=== PATIENT | male | born 1955 | race Caucasian/White ===

== ENCOUNTER 2017-04-13 15:04 | Inpatient (IN) | payer OTHER ==
--- NOTE | ~2017-04-13 | OP ---
Record Of [place] [id number] [facility] [place]. [address] NAME: DELANO HAGAN : 51 STATUS : ADM IN PAT#: [id number] AGE: 62 ADM/REG DATE : 04/13/17 MR#: [id number] REPORT SERV DATE: 04/24/17 DICTATED BY: GREG BRADLEY DATE: 04/23/17 REPORT STATUS : Draft TRANSCRIBED BY: MODL DATE: 04/23/17 DATE OF PROCEDURE: 04/23/2017 PRINT COLOR OPERATOR: Jeffery Bradley. ANESTHESIOLOGIST: Parker Maldonado M.D. PREOPERATIVE DIAGNOSES: 1. ST-segment elevation myocardial infarction. 2. Coronary artery disease. 3. Hypertension. 4. Hyperlipidemia. 5. Prior tobacco abuse. POSTOPERATIVE DIAGNOSES: 1. ST-segment elevation myocardial infarction. 2. Coronary artery disease. 3. Hypertension. 4. Hyperlipidemia. 5. Prior tobacco abuse. OPERATION/PROCEDURE PERFORMED: 1. Median sternotomy. 2. Extracorporeal circulation. 3. Urgent coronary artery bypass grafting x1, reverse greater saphenous vein graft to posterior descending artery. 4. JUDY. 5. Endoscopic vein harvest of right thigh. COMPLICATIONS: None. TUBES AND DRAINS: 32 straight atrial and ventricular wires. POSTOPERATIVE CONDITION: Stable to CVICU. Crossclamp of 26 minutes. Total cardiopulmonary bypass time of 41 minutes. INTRAOPERATIVE FINDINGS: On induction, there were ST-segment elevations inferiorly which resolved with nitroglycerin. The patient's ST changes were all resolved post bypass. He had a thin aorta; good quality vein, 4-5 mm. His PDA was 1.75 mm. On transesophageal echo prebypass, mild MR, inferior wall was slightly hypokinetic. There was no AI or . Post bypass, there was mild MR. His inferior wall was improved. There was no change in the AI or . INDICATIONS FOR PROCEDURE: The patient is a 62-year-old gentleman with a history of coronary artery disease. He has had stents to his RCA on 6 different occasions. He presented to the Record Of [facility] [address] [facility] [address] [place]. [address] NAME: DELANO HAGAN : 51 STATUS : ADM IN PAT#: [id number] AGE: 62 ADM/REG DATE : 04/13/17 MR#: [id number] REPORT SERV DATE: 04/24/17 DICTATED BY: GREG BRADLEY DATE: 04/23/17 REPORT STATUS : Draft TRANSCRIBED BY: FOZIA DATE: 04/23/17 emergency department with chest pain and EKG changes consistent with ST-elevation PR. He was taken for cardiac catheterization and was found to have a complete reocclusion to his right and this was treated with balloon angioplasty, and we were asked to see him to evaluate him for coronary artery bypass grafting after multiple stents placed. He washout. Risks, benefits, and alternatives were discussed with the patient including, but not limited to, bleeding, infection, stroke, , heart attack, need for future operations, kidney failure, lung failure, and cardiac arrhythmias. His STS risk mortality was 0.7% and morbidity mortality of 8.4% were discussed with him. All questions were answered. DETAILS OF PROCEDURE: The patient was brought to the operating room and placed supine on the operating room table. After satisfactory induction of general endotracheal anesthesia, he was prepped and draped in the usual sterile fashion. Working simultaneously, a median sternotomy was performed while skin and subcutaneous tissues were divided, and his endoscopic vein harvest was performed from his right thigh. The skin and subcutaneous tissues were divided, clavipectoral fascia was divided, and the sternum was divided in the midline. A sternal retractor was placed, pericardium was opened in the midline and along the diaphragm. Pericardial well was created. Aortic cannulation was achieved through dual pursestring at the base of the innominate artery. Antegrade root vent cardioplegia tack was placed and a dual-stage venous cannula was placed through the pursestring on the right atrial appendage. Systemic heparinization was achieved prior to opening the pericardium. The vein was brought up and was inspected and prepared for bypass. The cardiopulmonary bypass was initiated after documentation of an adequate ACT. The targets were inspected and felt to be appropriate. I did not think that his circumflex system would support a graft. This LAD system did not need a graft, really only felt that based on his cath that his PDA needed a graft. Crossclamp was brought up. The heart was arrested with cold antegrade cardioplegia, and after completion of arrest, the heart was positioned and the PDA was opened. A running continuous anastomosis was performed using 8-0 Surgipro. Vein was checked for hemostasis and felt to be hemostatic. Heart was filled. It was cut to length and spatulated. A proximal aortotomy was performed, enlarged with a 5.2 mm punch, and a running continuous anastomosis was performed using 6-0 Prolene. Vein graft marker was placed, vein graft was de-aired, and the crossclamp was removed. Atrial and ventricular pacing wires were placed. The patient returned to normal sinus rhythm, was able to be weaned from cardiopulmonary bypass without incident. Protamine was administered. He was decannulated. All cannulation sites were oversewn with 4-0 Prolene. The pericardium was loosely reapproximated over the aorta and the right ventricle using 2-0 silk. Hemostasis was obtained. A 32-Malagasy chest tube was placed under the sternum. The sternum was reapproximated with stainless steel sternal wires. Some of these were double wires. Clavipectoral fascia was reapproximated using running #1 StrataFix, subcutaneous tissue was closed using running #1 StrataFix, and the skin closed with 2-0 Quill. A dry sterile dressing was placed and he was transferred to the CVICU in critical stable condition. [facility] Greg Campbell Record Of Operation [address] [address] NAME: DELANO HAGAN : 51 STATUS : ADM IN PAT#: [id number] AGE: 62 ADM/REG DATE : 04/13/17 MR#: [id number] REPORT SERV DATE: 04/24/17 DICTATED BY: GREG BRADLEY DATE: 04/23/17 REPORT STATUS : Draft TRANSCRIBED BY: MODL DATE: 04/23/17 MD Iam / [id number] CC: MD Ignacio Liu Jr., M.D.
--- NOTE | ~2017-04-13 | HP ---
History And Physical [place] [address] [place]. [address] NAME: DELANO HAGAN : 51 STATUS : ADM IN PAT#: [id number] AGE: 62 ADM/REG DATE : 04/13/17 MR#: [id number] REPORT SERV DATE: 04/13/17 DICTATED BY: AUSTEN AN JR. DATE: 04/13/17 REPORT STATUS : Draft TRANSCRIBED BY: MODRikki DATE: 04/13/17 DATE OF ADMISSION: 04/13/2017 HISTORY OF PRESENT ILLNESS: Delano is a 62-year-old white male with ischemic heart disease, status post multiple prior interventions in RCA. He presents with accelerating angina with anticipated elective cath next week. His symptoms rapidly progressed prompting to ER presentation. His initial EKG did not reveal ST elevation. He developed recurrent chest pain that was more severe and repeat EKG was performed revealing benita ST elevation consistent with STEMI and the STEMI protocol was activated. PAST MEDICAL HISTORY: Inferior myocardial infarction in 2008; recurrent infarction in 2013, 2014, and 2015, all involving the right coronary artery. The patient has hypertension, mixed hyperlipidemia. He has osteoarthritis. He has COPD. He had a subdural evacuation last year without sequelae. ALLERGIES: CODEINE. CURRENT MEDICATIONS: Please see the medication sheet, which was reviewed. SOCIAL HISTORY: He is an ex-smoker. He does not abuse alcohol or recreational drugs. FAMILY HISTORY: Significant for mid and late life vascular events. REVIEW OF SYSTEMS: He denies fever, chills, bleeding diathesis, sudden weight gain or weight loss. Remainder as in HPI or negative. PHYSICAL EXAMINATION: VITAL SIGNS: Blood pressure 150/81, heart rate 72, respirations 16. GENERAL: Well developed, well nourished, in no acute distress. HEENT: Anicteric, no scleral injection, no oral lesions. NECK: No JVD, supple, no bruits. LUNGS: Clear to auscultation. No hyperexpansion. CARDIOVASCULAR: Regular rate and rhythm with no murmur, rub or gallop. ABDOMEN: Soft, nontender. Normoactive bowel sounds, no hepatosplenomegaly. EXTREMITIES: No clubbing, cyanosis or edema. SKIN: No visible rashes. NEURO/PSY: Normal affect, alert and oriented x 3. MEDICAL DECISION MAKIN. Acute ST-elevation NH involving the inferior leads consistent with known chronic disease in his RCA. The patient will be taken emergently to the cardiac catheterization laboratory for coronary angiography and percutaneous intervention. The risks were verbally accepted and verbally given secondary to emergent nature of the procedure. 2. Mixed hyperlipidemia. We will continue intensive statin therapy. History And Physical [address] [place]. [address] NAME: DELANO HAGAN : 51 STATUS : ADM IN PAT#: [id number] AGE: 62 ADM/REG DATE : 04/13/17 MR#: [id number] REPORT SERV DATE: 04/13/17 DICTATED BY: AUSTEN AN JR. DATE: 04/13/17 REPORT STATUS : Draft TRANSCRIBED BY: FOZIA DATE: 04/13/17 3. Hypertension. We will adjust medicines as needed during this hospital stay. BRENDA/FOZIA Austen An Jr., M.D. / [id number] CC: Lesa Pierre Jr., M.D. Robert Berglund, M.D.
--- NOTE | ~2017-04-13 | DS ---
Discharge Summary [facility] [address] [place]. [address] NAME: DELANO HAGAN : 51 STATUS : DIS IN PAT#: [id number] AGE: 62 ADM/REG DATE : 04/13/17 MR#: [id number] REPORT SERV DATE: 05/11/17 DICTATED BY: AUSTEN AN JR. DATE: 05/11/17 REPORT STATUS : Draft TRANSCRIBED BY: FOZIA DATE: 05/11/17 Data Collection from hospitalization DISCHARGE DIAGNOSES: 1. Inferior ST elevation myocardial infarction-acute. 2. Coronary artery disease status post coronary artery bypass grafting. 3. Hypertension. 4. Hyperlipidemia. 5. Osteoarthritis. 6. Chronic obstructive pulmonary disease. 7. Former smoker. 8. History of subdural hematoma. CONSULTATIONS: Angelito Woody NP. PROCEDURES: 1. Cardiac catheterization and percutaneous coronary intervention on 04/13/2017. 2. Median sternotomy, extracorporeal circulation. Urgent coronary artery bypass grafting x1 with reverse greater saphenous vein graft to the posterior descending artery. Transesophageal echocardiogram. Endoscopic vein harvest from the right thigh, 04/23/2017. 3. Carotid blood flow study, 04/16/2017. 4. Vein mapping of the bilateral lower extremities, 04/16/2017. 5. CT scan of the chest without contrast, 04/16/2017. MEDICATIONS: 1. Aspirin 162 mg daily. 2. Lipitor 40 mg at bedtime. 3. Symbicort two inhalations twice a day. 4. Cytotec 2.5 mg daily. 5. [place] 5/325 mg one to two tablets every 6 hours as needed. 6. Keppra 1500 mg twice a day. 7. Toprol-XL 50 mg daily. 8. Singulair 10 mg at bedtime. 9. Nitrostat 0.4 mg sublingually as needed. 10.Deltasone 5 mg twice a day. 11.He was instructed not to continue ibuprofen or Effient. CONDITION AT DISCHARGE: Stable. DISPOSITION: The patient was discharged home on a low-cholesterol, low-sodium cardiac diet with activities as instructed. FOLLOW-UP: He would follow up with Dr. Greg Vitale on 05/22/[address] Giorgio Blankenship on 05/16/2017. HOSPITAL COURSE: This is a 62-year-old man who has ischemic heart disease and is status post multiple prior interventions in the right coronary artery. He presented with accelerating Discharge Summary [place] [address] [place]. [address] NAME: DELANO HAGAN : 51 STATUS : DIS IN PAT#: [id number] AGE: 62 ADM/REG DATE : 04/13/17 MR#: [id number] REPORT SERV DATE: 05/11/17 DICTATED BY: AUSTEN AN JR. DATE: 05/11/17 REPORT STATUS : Draft TRANSCRIBED BY: FOZIA DATE: 05/11/17 angina with anticipated elective catheterization scheduled for the following week. His symptoms rapidly progressed and prompted an emergency room presentation. His initial EKG did not reveal ST elevation. He developed recurrent chest pain that was even more severe and repeat EKG was performed revealing benita ST elevation consistent with ST elevation myocardial infarction. STEMI protocol was activated. He was felt to have had an acute ST elevation myocardial infarction involving the inferior leads consistent with known chronic disease in the right coronary artery. It was felt that he would need to undergo emergent cardiac catheterization as well as percutaneous coronary intervention. The patient agreed to proceed and was admitted to the hospital at this time for further evaluation and treatment. Upon admission, intensive statin therapy was continued. His blood pressure medications would be adjusted as needed during his hospital stay. He was taken to the cardiac laborer mine where he underwent the above-mentioned procedure. He tolerated this well. There were no complications. Following this, he was seen by Angelito Woody. He was found to have complete reocclusion to the RCA, this was treated with balloon angioplasty, and Cardiothoracic Surgery had been asked to evaluate him for coronary artery bypass grafting after multiple stent failures. He was also found to have mild occlusions to his ostial circumflex and mid LAD. He had been on Effient with his last dose earlier that morning. He was currently recovering from a cardiac catheterization on Angiomax and Integrilin with no complaints of chest pain or shortness of breath. He felt that we would need to wait 10 days to allow for Effient wash out. The patient was agreeable to proceed. The following day, he had no chest pain or shortness of breath. His lungs were clear. He had some transient hypotension. On 04/16/2017, a carotid blood flow study was performed as well as vein mapping of the bilateral lower extremities, and a CT scan of the chest without contrast. He also underwent an echocardiogram. Effient washout continued. He had no new issues. He had no chest pain or shortness of breath. He was ambulatory. He was on a heparin drip. Heart rate and blood pressure were controlled. SANGITA inhibitor would be discontinued preoperatively. He was sleeping well. On 04/23/2017, he was taken to the operating room where he underwent the above-mentioned procedure. He tolerated this well and there were no complications. On postop day #1, he had no new complaints. He had no edema. The following day, he denied any pain, he was up sitting in a chair. He was doing well. He was transferred to the floor. His appetite was poor. Over the next couple of days, he did have some nausea. He had no major issues. Chest x-ray had improved. Discharge planning was performed. On 04/27/2017, he had no new issues. He still required supplemental O2. He had no complaints of shortness of breath or chest pain. His incisions were dry and intact. Discharge instructions were given. Due to his improved and stable condition, he was discharged home with the above-stated instructions. Information collected by: Shannan Amanda I submit the above information as my discharge summary. JONES/FOZIA Discharge Summary [address] [address] NAME: DELANO HAGAN : 51 STATUS : DIS IN PAT#: [id number] AGE: 62 ADM/REG DATE : 04/13/17 MR#: [id number] REPORT SERV DATE: 05/11/17 DICTATED BY: AUSTEN AN JR. DATE: 05/11/17 REPORT STATUS : Draft TRANSCRIBED BY: FOZIA DATE: 05/11/17 Austen An Jr., M.D. / [id number] CC: Lesa Pierre Jr., M.D. Nathan S. Woody, NP
--- NOTE | ~2017-04-13 | CN ---
Consultation Report [facility] [address] [place]. [address] NAME: DELANO HAGAN : 51 STATUS : ADM IN PAT#: [id number] AGE: 62 ADM/REG DATE : 04/13/17 MR#: [id number] REPORT SERV DATE: 04/14/17 DICTATED BY: RYLIE WOODY DATE: 04/13/17 REPORT STATUS : Draft TRANSCRIBED BY: MODL DATE: 04/13/17 CONSULT REPORT DATE OF CONSULTATION: 04/13/2017 REASON FOR CONSULTATION: Coronary artery disease. HISTORY OF PRESENT ILLNESS: This is a pleasant 62-year-old male with a history of coronary artery disease who has had stents to his RCA on six different occasions starting since 2008 with the last intervention in 04/2016. The patient has been followed by Dr. Blankenship as an outpatient, came into the emergency room this morning with chest pain and EKG changes consistent with ST-elevation HI. He was taken for cardiac catheterization, found to have complete reocclusion to the RCA, this was treated with balloon angioplasty and Cardiothoracic Surgery has been asked to evaluate him for coronary artery bypass grafting after multiple stent failures. The patient was also found to have mild occlusions to his ostial circumflex and mid LAD. The patient has been on Effient with his last dose this morning. Currently, he is recovering after cardiac catheterization on Angiomax and Integrilin with no complaints of chest pain or shortness of breath. His daughter is with him at the bedside. PAST MEDICAL HISTORY: Coronary artery disease, high blood pressure, hyperlipidemia, distant history of tobacco abuse, prior subdural hematoma. PAST SURGICAL HISTORY: Prior stents to his RCA as mentioned above, previous surgery for subdural hematoma. SOCIAL HISTORY: He is with children, retired. Smoked but quit 35 years ago. Drinks alcohol daily around two to three beers per day. Denies any history of use of illicit drugs. FAMILY HISTORY: Reviewed and noncontributory. ALLERGIES: HE IS ALLERGIC TO CODEINE. HOME MEDICATIONS: Acetaminophen 650 mg p.o. q.6h. as needed, aspirin 81 mg per day, Effient 10 mg per day, atorvastatin 40 mg p.o. daily, enalapril 2.5 mg p.o. daily, ibuprofen 800 mg p.o. b.i.d. as needed, levetiracetam 1500 mg p.o. q.12h, metoprolol extended release 50 mg p.o. daily, Singulair 10 mg p.o. daily, Symbicort inhaler twice a day, and nitroglycerin 0.4 mg tabs as directed. REVIEW OF SYSTEMS: A 10-point review of systems was obtained and is negative other than HPI. PHYSICAL EXAMINATION: Consultation Report [address] [place]. [address] NAME: DELANO HAGAN : 51 STATUS : ADM IN PAT#: [id number] AGE: 62 ADM/REG DATE : 04/13/17 MR#: [id number] REPORT SERV DATE: 04/14/17 DICTATED BY: RYLIE WOODY DATE: 04/13/17 REPORT STATUS : Draft TRANSCRIBED BY: FOZIA DATE: 04/13/17 VITAL SIGNS: From today, temperature 97.8, heart rate 66, blood pressure 135/91, respiratory rate 16, and O2 saturation 98%. GENERAL: Pleasant male, in no acute distress. PSYCH: Normal mood, talkative, and pleasant. NEUROLOGIC: Alert and oriented x3. Admittedly forgetful. Pupils are equal, round, and reactive to light and accommodation. He exhibits equal strength in bilateral upper extremities and bilateral lower extremities. HEENT: Head normocephalic and atraumatic. Nose midline with no abnormalities. Fair dentition overall with no obvious caries or abscesses. Ears with no abnormalities. NECK: Supple with no thyromegaly or lymphadenopathy. Carotids on auscultation with no obvious bruits. LUNGS: Clear to auscultation bilaterally with normal effort. CARDIAC: S1, S2, with no murmurs, rubs, or gallops. ABDOMEN: Soft, obese, nontender, with active bowel sounds. EXTREMITIES: Free of cyanosis, clubbing, or edema. LABORATORY DATA: White blood cell count 7.5, hemoglobin 15.8, hematocrit 45, platelets 174. Sodium 142, potassium 4.3, chloride 110, bicarbonate 24, BUN 12, creatinine 1.0, and glucose 97. ASSESSMENT AND PLAN: This is a pleasant 62-year-old male with a history of coronary artery disease status post stents to his RCA on six different occasions with the last stenting 11 months ago. He came in this morning with chest pain and ST-elevation HI, taken for cardiac catheterization and found to have total occlusion of his RCA which was treated with balloon angioplasty and we have been consulted for surgical evaluation. I believe the patient would benefit from coronary bypass to his right coronary artery. I discussed the findings with Dr. Vitale who reviewed images and also talked to the patient. We discussed the risks and benefits of surgery as well as STS risk scores and option for surgery. STS risk stratification for him and this particular surgery include an overall mortality of 0.7% and a morbidity mortality of 8.4%. I discussed these findings with the patient in relation to his need for surgery and expectation for recovery and the patient is agreeable to proceed. Unfortunately, we will need to wait 10 days to allow for Effient washout. The patient is agreeable to wait. In the meantime, we will order an echocardiogram, carotid ultrasound, bilateral lower extremity venous mapping, as well as a noncontrast CT scan of his chest. Cardiothoracic Surgery will be available over the weekend as needed. Otherwise, we will follow up again with him on Sunday. Thank you for the consultation. We look forward to helping you take care of Mr. Delano Hagan. FRANK/FOZIA Rylie Victoria Consultation Report [address] [place]. [address] NAME: DELANO HAGAN : 51 STATUS : ADM IN PAT#: [id number] AGE: 62 ADM/REG DATE : 04/13/17 MR#: [id number] REPORT SERV DATE: 04/14/17 DICTATED BY: RYLIE WOODY DATE: 04/13/17 REPORT STATUS : Draft TRANSCRIBED BY: MODL DATE: 04/13/17 LEIDA Woody / [id number] CC: Lesa Pierre Jr., MD
[2017-04-13 13:39] LABS: BASOPHILS 0.7 %; BASOPHILS ABSOLUTE 0.05 10/3/uL (0.0-0.16); EOSINOPHILS 1.2 %; EOSINOPHILS ABSOLUTE 0.09 10/3/uL (0.0-0.53); ER CBC TAT 0 Hrs 05 Mins; HEMOGLOBIN 15.8 g/dL (13.6-17.8); IMMATURE GRANULOCYTES 0.3 %; IMMATURE GRANULOCYTES ABSOLUTE 0.02 10/3/uL (0.0-0.11); LYMPHOCYTES 31.2 %; LYMPHOCYTES ABSOLUTE 2.35 10/3/uL (0.67-4.30); MANUAL DIFF NO %; MEAN CORPUS HGB CONC 35.1 g/dL (32.0-36.0); MEAN CORPUSCULAR HEMOGLOB 33.6 pg (26.0-34.0); MEAN CORPUSCULAR VOLUME 95.7 fL (80-100); MEAN PLATELET VOLUME 9.7 fL (9.2-13.0); MONOCYTES 13.8 %; MONOCYTES ABSOLUTE 1.04 10/3/uL (0.21-1.20); NEUTROPHILS 52.8 %; NEUTROPHILS ABSOLUTE 3.99 10/3/uL (2.02-8.40); PLATELET COUNT 174 10/3/uL (150-400); RBC DISTRIBUTION WIDTH 12.5 % (12.0-16.0); WHITE BLOOD CELLS 7.5 10/3/uL (4.5-10.5)
[2017-04-13 13:49] LABS: INTERNATIONAL NORMAL RATI 1.1 UNITS (-); PARTIAL THROMBO TIME 26.3 SEC (22.5-37.2)
[2017-04-13 13:56] LABS: BUN (BLOOD UREA NITROGEN) 12 MG/DL (6-23); CALCIUM, SERUM 9.1 MG/DL (8.5-10.4); CHEST PAIN PROFILE TAT 0 Hrs 22 Mins; CHLORIDE, SERUM 110 MMOL/L (96-112); CO2 (CARBON DIOXIDE) 24 MMOL/L (24-34); CREATININE 1.08 MG/DL (0.70-1.30); GFR AFRICAN AMERICAN 84 ML/MIN (>=60); GFR NON AFRICAN AMERICAN 72 ML/MIN (>=60); GLUCOSE, SERUM 97 MG/DL (60-99); POTASSIUM, SERUM 4.3 MMOL/L (3.5-5.3); SODIUM, SERUM 142 MMOL/L (135-148); TROPONIN I <0.02 NG/ML (<0.05)
[~2017-04-13 15:04] MED LIST: *UNABLE1; ACET500CAP PO; ASA5GR PO; ASAB PO; ATORVASTATIN PO; BONIVA150 MG PO; CENTRUM PO; DIOV160 PO; DIOVAN; EFFIENT10 PO; GENPRIL200 MG PO; IBU800 PO; KEPPRA500 PO; LIPITOR; LIPITOR40 PO; LOP25 PO; NITROQUICK0.4 MG SL; NITROSTAT0.4 MG SL; NORV5 PO; PLAVIX PO; RAN500 PO; RITALIN20 PO; SINGULAIR1 PO; SYMBICORT 160/41 INH INH; TOPXL50 PO; VASOTEC2 PO; ZANTAC150 MG PO; ZESTORETIC1 TA1 PO; [UNRECOGNIZED DRUG - OTHER]
[2017-04-13] MEDS ORDERED: SYMBICORT 160/41 INH PO (15:08)
[2017-04-13] MEDS ORDERED: EFFIENT10 PO (15:08)
[2017-04-13] MEDS ORDERED: LIPITOR40 PO (15:08)
[2017-04-13] MEDS ORDERED: KEPPRA500 PO (15:09)
[2017-04-13] MEDS ORDERED: VASOTEC2 PO (15:09)
[2017-04-13] MEDS ORDERED: SINGULAIR1 PO (15:09)
[2017-04-13] MEDS ORDERED: ASAB PO (15:10)
[2017-04-13] MEDS ORDERED: IBU800 PO (15:10)
[2017-04-13] MEDS ORDERED: NITROSTAT0.4 MG SL (15:10)
[2017-04-13] MEDS ORDERED: TOPXL50 PO (15:10)
[2017-04-13] MEDS ORDERED: *UNABLE3 (15:12)
[2017-04-13 22:40] LABS: BASOPHILS 0.5 %; BASOPHILS ABSOLUTE 0.04 10/3/uL (0.0-0.16); EOSINOPHILS 0.5 %; EOSINOPHILS ABSOLUTE 0.04 10/3/uL (0.0-0.53); HEMATOCRIT 41.2 % (40.0-51.0); HEMOGLOBIN 14.3 g/dL (13.6-17.8); IMMATURE GRANULOCYTES 0.1 %; IMMATURE GRANULOCYTES ABSOLUTE 0.01 10/3/uL (0.0-0.11); LYMPHOCYTES 22.1 %; LYMPHOCYTES ABSOLUTE 1.87 10/3/uL (0.67-4.30); MANUAL DIFF NO %; MEAN CORPUS HGB CONC 34.7 g/dL (32.0-36.0); MEAN CORPUSCULAR HEMOGLOB 33.4 pg (26.0-34.0); MEAN CORPUSCULAR VOLUME 96.3 fL (80-100); MEAN PLATELET VOLUME 10.1 fL (9.2-13.0); MONOCYTES 11.2 %; MONOCYTES ABSOLUTE 0.95 10/3/uL (0.21-1.20); NEUTROPHILS 65.6 %; NEUTROPHILS ABSOLUTE 5.57 10/3/uL (2.02-8.40); PLATELET COUNT 167 10/3/uL (150-400); RBC DISTRIBUTION WIDTH 12.7 % (12.0-16.0); RED CELL COUNT 4.28 10/6/uL (4.7-6.1); WHITE BLOOD CELLS 8.5 10/3/uL (4.5-10.5)
[2017-04-13 23:03] LABS: CK-MB 4.4 NG/ML; CPK 89 U/L (0-200)
[2017-04-13 23:05] LABS: TROPONIN I 0.95 NG/ML (<0.05)
[2017-04-14 01:05] LABS: BASOPHILS 0.6 %; BASOPHILS ABSOLUTE 0.05 10/3/uL (0.0-0.16); EOSINOPHILS 1.2 %; HEMATOCRIT 40.8 % (40.0-51.0); HEMOGLOBIN 14.2 g/dL (13.6-17.8); IMMATURE GRANULOCYTES 0.4 %; IMMATURE GRANULOCYTES ABSOLUTE 0.03 10/3/uL (0.0-0.11); LYMPHOCYTES 28.3 %; LYMPHOCYTES ABSOLUTE 2.32 10/3/uL (0.67-4.30); MANUAL DIFF NO %; MEAN CORPUS HGB CONC 34.8 g/dL (32.0-36.0); MEAN CORPUSCULAR HEMOGLOB 33.6 pg (26.0-34.0); MEAN CORPUSCULAR VOLUME 96.7 fL (80-100); MONOCYTES 15.8 %; NEUTROPHILS 53.7 %; NEUTROPHILS ABSOLUTE 4.41 10/3/uL (2.02-8.40); PLATELET COUNT 171 10/3/uL (150-400); RBC DISTRIBUTION WIDTH 12.6 % (12.0-16.0); RED CELL COUNT 4.22 10/6/uL (4.7-6.1); WHITE BLOOD CELLS 8.2 10/3/uL (4.5-10.5)
[2017-04-14 04:59] LABS: BASOPHILS 0.7 %; BASOPHILS ABSOLUTE 0.05 10/3/uL (0.0-0.16); EOSINOPHILS 1.3 %; HEMATOCRIT 39.2 % (40.0-51.0); HEMOGLOBIN 13.4 g/dL (13.6-17.8); IMMATURE GRANULOCYTES 0.1 %; IMMATURE GRANULOCYTES ABSOLUTE 0.01 10/3/uL (0.0-0.11); LYMPHOCYTES 29.5 %; LYMPHOCYTES ABSOLUTE 2.21 10/3/uL (0.67-4.30); MEAN CORPUS HGB CONC 34.2 g/dL (32.0-36.0); MEAN CORPUSCULAR HEMOGLOB 32.9 pg (26.0-34.0); MEAN CORPUSCULAR VOLUME 96.3 fL (80-100); MEAN PLATELET VOLUME 9.5 fL (9.2-13.0); NEUTROPHILS 52.4 %; NEUTROPHILS ABSOLUTE 3.91 10/3/uL (2.02-8.40); PLATELET COUNT 150 10/3/uL (150-400); RBC DISTRIBUTION WIDTH 12.8 % (12.0-16.0); RED CELL COUNT 4.07 10/6/uL (4.7-6.1); WHITE BLOOD CELLS 7.5 10/3/uL (4.5-10.5)
[2017-04-14 05:01] LABS: MANUAL DIFF NO %
[2017-04-14 05:17] LABS: BUN (BLOOD UREA NITROGEN) 13 MG/DL (6-23); CHLORIDE, SERUM 109 MMOL/L (96-112); CHOL/HDL RATIO(NOT ORDER) 2.6 (0-5); CHOLESTEROL 121 MG/DL (< 200); CO2 (CARBON DIOXIDE) 25 MMOL/L (24-34); CPK 90 U/L (0-200); CREATININE 0.96 MG/DL (0.70-1.30); GFR AFRICAN AMERICAN 96 ML/MIN (>=60); GFR NON AFRICAN AMERICAN 83 ML/MIN (>=60); GLUCOSE, SERUM 93 MG/DL (60-99); HDL CHOLESTEROL 47 MG/DL (> 39); LDL CHOLESTEROL 48 MG/DL (< 130); NON-HDL CHOLESTEROL 74 MG/DL (< 160); POTASSIUM, SERUM 4.2 MMOL/L (3.5-5.3); SODIUM, SERUM 139 MMOL/L (135-148); TRIGLYCERIDE 130 MG/DL (< 150)
[2017-04-14 05:19] LABS: CALCIUM, SERUM 7.9 MG/DL (8.5-10.4); CK-MB 4.7 NG/ML; TROPONIN I 0.82 NG/ML (<0.05)
[2017-04-14 14:19] LABS: CK-MB 3.6 NG/ML; CPK 77 U/L (0-200)
[2017-04-15 05:22] LABS: BASOPHILS 0.7 %; BASOPHILS ABSOLUTE 0.05 10/3/uL (0.0-0.16); EOSINOPHILS 2.1 %; EOSINOPHILS ABSOLUTE 0.15 10/3/uL (0.0-0.53); IMMATURE GRANULOCYTES 0.1 %; IMMATURE GRANULOCYTES ABSOLUTE 0.01 10/3/uL (0.0-0.11); LYMPHOCYTES 30.4 %; LYMPHOCYTES ABSOLUTE 2.16 10/3/uL (0.67-4.30); MEAN CORPUS HGB CONC 34.1 g/dL (32.0-36.0); MEAN CORPUSCULAR VOLUME 96.7 fL (80-100); MEAN PLATELET VOLUME 9.6 fL (9.2-13.0); MONOCYTES 12.4 %; MONOCYTES ABSOLUTE 0.88 10/3/uL (0.21-1.20); NEUTROPHILS 54.3 %; NEUTROPHILS ABSOLUTE 3.86 10/3/uL (2.02-8.40); PLATELET COUNT 147 10/3/uL (150-400); RBC DISTRIBUTION WIDTH 12.7 % (12.0-16.0); RED CELL COUNT 4.24 10/6/uL (4.7-6.1); WHITE BLOOD CELLS 7.1 10/3/uL (4.5-10.5)
[2017-04-15 05:23] LABS: MANUAL DIFF NO %
[2017-04-15 05:35] LABS: BUN (BLOOD UREA NITROGEN) 9 MG/DL (6-23); CHLORIDE, SERUM 109 MMOL/L (96-112); CO2 (CARBON DIOXIDE) 27 MMOL/L (24-34); CREATININE 0.81 MG/DL (0.70-1.30); GFR AFRICAN AMERICAN 109 ML/MIN (>=60); GFR NON AFRICAN AMERICAN 94 ML/MIN (>=60); GLUCOSE, SERUM 98 MG/DL (60-99); POTASSIUM, SERUM 4.1 MMOL/L (3.5-5.3); SODIUM, SERUM 141 MMOL/L (135-148)
[2017-04-17 05:28] LABS: BASOPHILS 0.5 %; BASOPHILS ABSOLUTE 0.04 10/3/uL (0.0-0.16); EOSINOPHILS 2.7 %; HEMATOCRIT 44.2 % (40.0-51.0); HEMOGLOBIN 15.6 g/dL (13.6-17.8); IMMATURE GRANULOCYTES 0.5 %; IMMATURE GRANULOCYTES ABSOLUTE 0.04 10/3/uL (0.0-0.11); LYMPHOCYTES 25.8 %; LYMPHOCYTES ABSOLUTE 1.91 10/3/uL (0.67-4.30); MANUAL DIFF NO %; MEAN CORPUS HGB CONC 35.3 g/dL (32.0-36.0); MEAN CORPUSCULAR HEMOGLOB 33.8 pg (26.0-34.0); MEAN CORPUSCULAR VOLUME 95.9 fL (80-100); MEAN PLATELET VOLUME 9.4 fL (9.2-13.0); MONOCYTES 15.1 %; MONOCYTES ABSOLUTE 1.12 10/3/uL (0.21-1.20); NEUTROPHILS 55.4 %; NEUTROPHILS ABSOLUTE 4.09 10/3/uL (2.02-8.40); PLATELET COUNT 170 10/3/uL (150-400); RBC DISTRIBUTION WIDTH 12.6 % (12.0-16.0); RED CELL COUNT 4.61 10/6/uL (4.7-6.1); WHITE BLOOD CELLS 7.4 10/3/uL (4.5-10.5)
[2017-04-17 06:19] LABS: BUN (BLOOD UREA NITROGEN) 9 MG/DL (6-23); CALCIUM, SERUM 8.5 MG/DL (8.5-10.4); CHLORIDE, SERUM 105 MMOL/L (96-112); CO2 (CARBON DIOXIDE) 22 MMOL/L (24-34); CREATININE 0.86 MG/DL (0.70-1.30); GFR AFRICAN AMERICAN 106 ML/MIN (>=60); GFR NON AFRICAN AMERICAN 92 ML/MIN (>=60); GLUCOSE, SERUM 104 MG/DL (60-99); POTASSIUM, SERUM 4.5 MMOL/L (3.5-5.3); SODIUM, SERUM 136 MMOL/L (135-148)
[2017-04-22 07:12] LABS: BASOPHILS 0.6 %; BASOPHILS ABSOLUTE 0.05 10/3/uL (0.0-0.16); EOSINOPHILS 1.5 %; EOSINOPHILS ABSOLUTE 0.12 10/3/uL (0.0-0.53); HEMATOCRIT 43.8 % (40.0-51.0); HEMOGLOBIN 15.2 g/dL (13.6-17.8); IMMATURE GRANULOCYTES 0.4 %; IMMATURE GRANULOCYTES ABSOLUTE 0.03 10/3/uL (0.0-0.11); LYMPHOCYTES 28.7 %; LYMPHOCYTES ABSOLUTE 2.31 10/3/uL (0.67-4.30); MEAN CORPUS HGB CONC 34.7 g/dL (32.0-36.0); MEAN CORPUSCULAR HEMOGLOB 33.5 pg (26.0-34.0); MEAN CORPUSCULAR VOLUME 96.5 fL (80-100); MEAN PLATELET VOLUME 9.9 fL (9.2-13.0); MONOCYTES 12.3 %; MONOCYTES ABSOLUTE 0.99 10/3/uL (0.21-1.20); NEUTROPHILS 56.5 %; NEUTROPHILS ABSOLUTE 4.56 10/3/uL (2.02-8.40); PLATELET COUNT 190 10/3/uL (150-400); RBC DISTRIBUTION WIDTH 12.8 % (12.0-16.0); RED CELL COUNT 4.54 10/6/uL (4.7-6.1); WHITE BLOOD CELLS 8.1 10/3/uL (4.5-10.5)
[2017-04-22 07:18] LABS: INTERNATIONAL NORMAL RATI 1.1 UNITS (-); PROTIME (NOT ORD) 14.1 SEC (12.0-14.5)
[2017-04-22 07:22] LABS: MANUAL DIFF NO %
[2017-04-22 07:26] LABS: CALCIUM, SERUM 8.9 MG/DL (8.5-10.4); CHLORIDE, SERUM 103 MMOL/L (96-112); CO2 (CARBON DIOXIDE) 25 MMOL/L (24-34); CREATININE 0.89 MG/DL (0.70-1.30); GFR AFRICAN AMERICAN 105 ML/MIN (>=60); GFR NON AFRICAN AMERICAN 90 ML/MIN (>=60); POTASSIUM, SERUM 3.8 MMOL/L (3.5-5.3); SODIUM, SERUM 136 MMOL/L (135-148)
[2017-04-22 07:27] LABS: BUN (BLOOD UREA NITROGEN) 13 MG/DL (6-23); GLUCOSE, SERUM 125 MG/DL (60-99)
[2017-04-22 09:52] LABS: WBC (NOT ORDERED) (RFLEX) 0 (0-5)
[2017-04-22 10:13] LABS: ASCORBIC ACID (UR NOT ORDER) NEG (NEG); BILIRUBIN, URINE NEGATIVE (NEG); KETONE, URINE NEGATIVE (NEG); LEUKOCYTE ESTERASE(NOT OR NEG (NEG)
[2017-04-23 06:45] LABS: BASOPHILS 0.9 %; BASOPHILS ABSOLUTE 0.07 10/3/uL (0.0-0.16); EOSINOPHILS 1.3 %; HEMATOCRIT 43.5 % (40.0-51.0); HEMOGLOBIN 15.2 g/dL (13.6-17.8); IMMATURE GRANULOCYTES 0.4 %; IMMATURE GRANULOCYTES ABSOLUTE 0.03 10/3/uL (0.0-0.11); LYMPHOCYTES 28.1 %; LYMPHOCYTES ABSOLUTE 2.21 10/3/uL (0.67-4.30); MEAN CORPUS HGB CONC 34.9 g/dL (32.0-36.0); MEAN CORPUSCULAR HEMOGLOB 33.7 pg (26.0-34.0); MEAN CORPUSCULAR VOLUME 96.5 fL (80-100); MONOCYTES 11.3 %; MONOCYTES ABSOLUTE 0.89 10/3/uL (0.21-1.20); NEUTROPHILS ABSOLUTE 4.56 10/3/uL (2.02-8.40); PLATELET COUNT 186 10/3/uL (150-400); RBC DISTRIBUTION WIDTH 12.8 % (12.0-16.0); RED CELL COUNT 4.51 10/6/uL (4.7-6.1); WHITE BLOOD CELLS 7.9 10/3/uL (4.5-10.5)
[2017-04-23 06:47] LABS: MANUAL DIFF NO %
[2017-04-23 06:50] LABS: INTERNATIONAL NORMAL RATI 1.1 UNITS (-); PROTIME (NOT ORD) 14.4 SEC (12.0-14.5)
[2017-04-23 06:51] LABS: PARTIAL THROMBO TIME 66.9 SEC (22.5-37.2)
[2017-04-23 07:03] LABS: A/G RATIO 0.8 (0.7-1.9); ALBUMIN 3.3 G/DL (3.5-5.0); ALKALINE PHOSPHATASE 66 U/L (45-117); BUN (BLOOD UREA NITROGEN) 13 MG/DL (6-23); CALCIUM, SERUM 8.9 MG/DL (8.5-10.4); CHLORIDE, SERUM 104 MMOL/L (96-112); CO2 (CARBON DIOXIDE) 22 MMOL/L (24-34); CREATININE 0.97 MG/DL (0.70-1.30); GFR AFRICAN AMERICAN 95 ML/MIN (>=60); GFR NON AFRICAN AMERICAN 82 ML/MIN (>=60); GLOBULIN 3.9 G/DL (2.5-4.1); GLUCOSE, SERUM 102 MG/DL (60-99); POTASSIUM, SERUM 4.1 MMOL/L (3.5-5.3); SGOT(AST) 19 U/L (5-40); SGPT(ALT) 45 U/L (5-65); SODIUM, SERUM 133 MMOL/L (135-148); TOTAL BILIRUBIN 0.8 MG/DL (0-1.2); TOTAL PROTEIN 7.2 G/DL (6.0-8.5)
[2017-04-23 19:02] LABS: BE (BASE EXCESS) -0.4 MEQ/L (0 +/- 2.5); CARBOXYHEMOGLOBIN 0.3 % (0-3); HCO3 (ACTUAL BICARBONATE) 24.4 MEQ/L (23-27); HEMOBLOGIN CONTENT 13.9 G/DL (14-18); INSTRUMENT SERIAL # 11843; METHEMOGLOBIN 0.7 % (0-3); MODE SIMV; O2 CONTENT 19.4 VOL% (18-24); OPERATOR ID 32193; PCO2 (CO2 TENSION) 41 MMHG (35-45); PO2 (O2 TENSION) 185 MMHG (79-93); SAMPLE Arterial; TIDAL VOLUME 700 ML
[2017-04-23 19:45] LABS: HEMATOCRIT 37.3 % (40.0-51.0)
[2017-04-23 19:50] LABS: INTERNATIONAL NORMAL RATI 1.4 UNITS (-); PARTIAL THROMBO TIME 33.8 SEC (22.5-37.2)
[2017-04-23 19:52] LABS: PROTIME (NOT ORD) 16.9 SEC (12.0-14.5)
[2017-04-23 19:55] LABS: BUN (BLOOD UREA NITROGEN) 14 MG/DL (6-23); CALCIUM, SERUM 8.9 MG/DL (8.5-10.4); CHLORIDE, SERUM 107 MMOL/L (96-112); CREATININE 0.97 MG/DL (0.70-1.30); GFR AFRICAN AMERICAN 95 ML/MIN (>=60); GFR NON AFRICAN AMERICAN 82 ML/MIN (>=60); GLUCOSE, SERUM 106 MG/DL (60-99); POTASSIUM, SERUM 4.6 MMOL/L (3.5-5.3)
[2017-04-23 19:56] LABS: CO2 (CARBON DIOXIDE) 27 MMOL/L (24-34); SODIUM, SERUM 140 MMOL/L (135-148)
[2017-04-24 00:21] LABS: HEMATOCRIT 37.2 % (40.0-51.0)
[2017-04-24 02:33] LABS: BE (BASE EXCESS) -3.6 MEQ/L (0 +/- 2.5); DEVICE NC; HCO3 (ACTUAL BICARBONATE) 22.2 MEQ/L (23-27); HEMOBLOGIN CONTENT 13.7 G/DL (14-18); INSTRUMENT SERIAL # 11843; METHEMOGLOBIN 0.6 % (0-3); O2 CONTENT 18.7 VOL% (18-24); OPERATOR ID 32193; PCO2 (CO2 TENSION) 43 MMHG (35-45); PO2 (O2 TENSION) 109 MMHG (79-93); SAMPLE Arterial; pH 7.33 (7.37-7.43)
[2017-04-24 05:12] LABS: BASOPHILS 0.1 %; BASOPHILS ABSOLUTE 0.01 10/3/uL (0.0-0.16); EOSINOPHILS 0 %; HEMATOCRIT 36.6 % (40.0-51.0); HEMOGLOBIN 12.9 g/dL (13.6-17.8); IMMATURE GRANULOCYTES 0.4 %; IMMATURE GRANULOCYTES ABSOLUTE 0.06 10/3/uL (0.0-0.11); LYMPHOCYTES 3.8 %; LYMPHOCYTES ABSOLUTE 0.55 10/3/uL (0.67-4.30); MEAN CORPUS HGB CONC 35.2 g/dL (32.0-36.0); MEAN CORPUSCULAR HEMOGLOB 33.9 pg (26.0-34.0); MEAN CORPUSCULAR VOLUME 96.1 fL (80-100); MEAN PLATELET VOLUME 10.2 fL (9.2-13.0); MONOCYTES 6.6 %; MONOCYTES ABSOLUTE 0.95 10/3/uL (0.21-1.20); NEUTROPHILS 89.1 %; NEUTROPHILS ABSOLUTE 12.83 10/3/uL (2.02-8.40); PLATELET COUNT 146 10/3/uL (150-400); RBC DISTRIBUTION WIDTH 12.4 % (12.0-16.0); RED CELL COUNT 3.81 10/6/uL (4.7-6.1)
[2017-04-24 05:13] LABS: MANUAL DIFF NO %; WHITE BLOOD CELLS 14.4 10/3/uL (4.5-10.5)
[2017-04-24 05:27] LABS: CALCIUM, SERUM 8.6 MG/DL (8.5-10.4); CHLORIDE, SERUM 110 MMOL/L (96-112); CREATININE 1.06 MG/DL (0.70-1.30); GFR AFRICAN AMERICAN 86 ML/MIN (>=60); GFR NON AFRICAN AMERICAN 74 ML/MIN (>=60); GLUCOSE, SERUM 101 MG/DL (60-99); POTASSIUM, SERUM 4.2 MMOL/L (3.5-5.3); SODIUM, SERUM 140 MMOL/L (135-148)
[2017-04-24 05:29] LABS: BUN (BLOOD UREA NITROGEN) 18 MG/DL (6-23); CO2 (CARBON DIOXIDE) 22 MMOL/L (24-34)
[2017-04-24 16:12] LABS: HEMOGLOBIN 12.1 g/dL (13.6-17.8)
[2017-04-24 16:22] LABS: ALBUMIN 3.6 G/DL (3.5-5.0); BUN (BLOOD UREA NITROGEN) 19 MG/DL (6-23); CALCIUM, SERUM 8.1 MG/DL (8.5-10.4); CHLORIDE, SERUM 110 MMOL/L (96-112); CO2 (CARBON DIOXIDE) 25 MMOL/L (24-34); CREATININE 0.89 MG/DL (0.70-1.30); GFR AFRICAN AMERICAN 105 ML/MIN (>=60); GFR NON AFRICAN AMERICAN 90 ML/MIN (>=60); GLUCOSE, SERUM 121 MG/DL (60-99); POTASSIUM, SERUM 4.4 MMOL/L (3.5-5.3); SGOT(AST) 87 U/L (5-40); SGPT(ALT) 32 U/L (5-65); SODIUM, SERUM 141 MMOL/L (135-148); TOTAL BILIRUBIN 0.7 MG/DL (0-1.2); TOTAL PROTEIN 6.3 G/DL (6.0-8.5)
[2017-04-24 16:23] LABS: A/G RATIO 1.3 (0.7-1.9); ALKALINE PHOSPHATASE 47 U/L (45-117); GLOBULIN 2.7 G/DL (2.5-4.1)
[2017-04-25 03:10] LABS: BASOPHILS 0 %; BASOPHILS ABSOLUTE 0.01 10/3/uL (0.0-0.16); EOSINOPHILS 0 %; HEMATOCRIT 36.5 % (40.0-51.0); HEMOGLOBIN 12.2 g/dL (13.6-17.8); IMMATURE GRANULOCYTES 0.4 %; IMMATURE GRANULOCYTES ABSOLUTE 0.09 10/3/uL (0.0-0.11); LYMPHOCYTES 6.9 %; LYMPHOCYTES ABSOLUTE 1.44 10/3/uL (0.67-4.30); MEAN CORPUSCULAR HEMOGLOB 33.2 pg (26.0-34.0); MEAN PLATELET VOLUME 10.1 fL (9.2-13.0); MONOCYTES ABSOLUTE 1.87 10/3/uL (0.21-1.20); NEUTROPHILS 83.7 %; NEUTROPHILS ABSOLUTE 17.38 10/3/uL (2.02-8.40); PLATELET COUNT 122 10/3/uL (150-400); RBC DISTRIBUTION WIDTH 12.9 % (12.0-16.0); RED CELL COUNT 3.68 10/6/uL (4.7-6.1)
[2017-04-25 03:12] LABS: MANUAL DIFF NO %; MEAN CORPUS HGB CONC 33.4 g/dL (32.0-36.0); MEAN CORPUSCULAR VOLUME 99.2 fL (80-100); WHITE BLOOD CELLS 20.8 10/3/uL (4.5-10.5)
[2017-04-25 03:22] LABS: BUN (BLOOD UREA NITROGEN) 18 MG/DL (6-23); CALCIUM, SERUM 8.4 MG/DL (8.5-10.4); CHLORIDE, SERUM 107 MMOL/L (96-112); CO2 (CARBON DIOXIDE) 26 MMOL/L (24-34); CREATININE 0.99 MG/DL (0.70-1.30); GFR AFRICAN AMERICAN 93 ML/MIN (>=60); GFR NON AFRICAN AMERICAN 80 ML/MIN (>=60); GLUCOSE, SERUM 145 MG/DL (60-99); POTASSIUM, SERUM 4.8 MMOL/L (3.5-5.3); SODIUM, SERUM 141 MMOL/L (135-148)
[2017-04-26 04:55] LABS: CALCIUM, SERUM 8.6 MG/DL (8.5-10.4); CHLORIDE, SERUM 104 MMOL/L (96-112); CO2 (CARBON DIOXIDE) 30 MMOL/L (24-34); CREATININE 0.84 MG/DL (0.70-1.30); GFR AFRICAN AMERICAN 107 ML/MIN (>=60); GFR NON AFRICAN AMERICAN 93 ML/MIN (>=60); GLUCOSE, SERUM 123 MG/DL (60-99); POTASSIUM, SERUM 4.7 MMOL/L (3.5-5.3); SODIUM, SERUM 140 MMOL/L (135-148)
[2017-04-26 05:01] LABS: BUN (BLOOD UREA NITROGEN) 23 MG/DL (6-23)
[2017-04-26 05:06] LABS: BASOPHILS 0.1 %; BASOPHILS ABSOLUTE 0.02 10/3/uL (0.0-0.16); EOSINOPHILS 0 %; HEMATOCRIT 37.9 % (40.0-51.0); HEMOGLOBIN 12.6 g/dL (13.6-17.8); IMMATURE GRANULOCYTES 0.6 %; LYMPHOCYTES ABSOLUTE 1.52 10/3/uL (0.67-4.30); MEAN CORPUS HGB CONC 33.2 g/dL (32.0-36.0); MEAN CORPUSCULAR HEMOGLOB 33.7 pg (26.0-34.0); MEAN CORPUSCULAR VOLUME 101.3 fL (80-100); MEAN PLATELET VOLUME 10.7 fL (9.2-13.0); MONOCYTES 16.2 %; MONOCYTES ABSOLUTE 2.74 10/3/uL (0.21-1.20); NEUTROPHILS 74.1 %; NEUTROPHILS ABSOLUTE 12.55 10/3/uL (2.02-8.40); PLATELET COUNT 139 10/3/uL (150-400); RBC DISTRIBUTION WIDTH 13.1 % (12.0-16.0); RED CELL COUNT 3.74 10/6/uL (4.7-6.1); WHITE BLOOD CELLS 16.9 10/3/uL (4.5-10.5)
[2017-04-26 05:07] LABS: MANUAL DIFF NO %
[2017-04-27 06:55] LABS: BASOPHILS 0.1 %; BASOPHILS ABSOLUTE 0.01 10/3/uL (0.0-0.16); EOSINOPHILS 0.5 %; EOSINOPHILS ABSOLUTE 0.08 10/3/uL (0.0-0.53); HEMOGLOBIN 14.1 g/dL (13.6-17.8); IMMATURE GRANULOCYTES 0.3 %; IMMATURE GRANULOCYTES ABSOLUTE 0.05 10/3/uL (0.0-0.11); LYMPHOCYTES 14.4 %; LYMPHOCYTES ABSOLUTE 2.14 10/3/uL (0.67-4.30); MEAN CORPUS HGB CONC 33.7 g/dL (32.0-36.0); MEAN CORPUSCULAR HEMOGLOB 33.6 pg (26.0-34.0); MEAN CORPUSCULAR VOLUME 99.5 fL (80-100); MEAN PLATELET VOLUME 10.4 fL (9.2-13.0); MONOCYTES 16.6 %; MONOCYTES ABSOLUTE 2.47 10/3/uL (0.21-1.20); NEUTROPHILS 68.1 %; NEUTROPHILS ABSOLUTE 10.09 10/3/uL (2.02-8.40); PLATELET COUNT 145 10/3/uL (150-400); RBC DISTRIBUTION WIDTH 12.8 % (12.0-16.0); WHITE BLOOD CELLS 14.8 10/3/uL (4.5-10.5)
[2017-04-27 07:00] LABS: HEMATOCRIT 41.8 % (40.0-51.0); MANUAL DIFF NO %
[2017-04-27 07:06] LABS: CALCIUM, SERUM 8.7 MG/DL (8.5-10.4); CHLORIDE, SERUM 103 MMOL/L (96-112); CO2 (CARBON DIOXIDE) 27 MMOL/L (24-34); CREATININE 0.78 MG/DL (0.70-1.30); GFR AFRICAN AMERICAN 111 ML/MIN (>=60); GFR NON AFRICAN AMERICAN 95 ML/MIN (>=60); GLUCOSE, SERUM 105 MG/DL (60-99); POTASSIUM, SERUM 4.6 MMOL/L (3.5-5.3); SODIUM, SERUM 136 MMOL/L (135-148)
[2017-04-27 07:09] LABS: BUN (BLOOD UREA NITROGEN) 16 MG/DL (6-23)
[2017-04-27] MEDS ORDERED: NORCO1 TA1 PO (10:01)
[2017-04-27] MEDS ORDERED: DELTADOSE PO (10:02)
[2017-05-19] MEDS ORDERED: XARELTO15 MG PO (11:57)
== END 2017-04-27 11:38 | disposition home or self-care (01) | DRG 232 ==
LOC: ER 15:04 → SSU2 15:16 → CCU 16:05 → 6NO 04-14 18:01 → CVICU 04-23 17:18 → 5NO 04-25 12:46
PROVIDERS: Emergency Medicine; Internal Medicine Cardiovascular Disease; Internal Medicine Interventional Cardiology; Thoracic Surgery (Cardiothoracic Vascular Surgery)
PROC: 02703ZZ Dilation of Coronary Artery, One Artery, Percutaneous Approach (ICD-10-PCS; principal; 2017-04-13)
PROC: 021009W Bypass Coronary Artery, One Artery from Aorta with Autologous Venous Tissue, Open Approach (ICD-10-PCS; 2017-04-13)
PROC: 4A023N7 Measurement of Cardiac Sampling and Pressure, Left Heart, Percutaneous Approach (ICD-10-PCS; 2017-04-13)
PROC: 06BP4ZZ Excision of Right Saphenous Vein, Percutaneous Endoscopic Approach (ICD-10-PCS; 2017-04-13)
PROC: B2111ZZ Fluoroscopy of Multiple Coronary Arteries using Low Osmolar Contrast (ICD-10-PCS; 2017-04-13)
PROC: B2151ZZ Fluoroscopy of Left Heart using Low Osmolar Contrast (ICD-10-PCS; 2017-04-13)
PROC: 5A1221Z Performance of Cardiac Output, Continuous (ICD-10-PCS; 2017-04-23)
PROC: B246ZZ4 Ultrasonography of Right and Left Heart, Transesophageal (ICD-10-PCS; 2017-04-23)
DX: I21.19 ST elevation (STEMI) myocardial infarction involving other coronary artery of inferior wall (principal); J44.9 Chronic obstructive pulmonary disease, unspecified; I10 Essential (primary) hypertension; J98.11 Atelectasis; I25.2 Old myocardial infarction; E78.2 Mixed hyperlipidemia; M19.90 Unspecified osteoarthritis, unspecified site; Z87.891 Personal history of nicotine dependence; I25.110 Atherosclerotic heart disease of native coronary artery with unstable angina pectoris; Z88.5 Allergy status to narcotic agent
CPT/HCPCS: 36415; 71010; 71020; 71250; 80048; 80053; 80061; 81001; 82330; 82550; 82553; 82565; 82803; 82805; 82947; 82962; 83735; 84132; 84295; 84484; 85014; 85018; 85025; 85347; 85610; 85730; 86850; 86900; 86901; 86920; 87641; 92941; 93005; 93306; 93312; 93320; 93325; 93458; 93880; 94002; 94640; 94660; 94770; 96374; 96375; 99152; 99153; 99285; A9270-GY; C1713; C1725; C1751; C1769; C1887; C1894; G0365; J0583; J0690; J1327; J1644; J2150; J2250; J2370; J2405; J2440; J2720; J2930; J3010; J3370; J3475; J3480; P9045; P9047; Q9967